=== PATIENT | female | born 1985 | race African-American/Black ===

== ENCOUNTER 2016-04-11 10:50 | Emergency (ER) | payer OTHER ==
--- NOTE | 2016-04-11 13:42 | EDDOCDS ---
Nurse's Notes [facility] Name: Marci Cain Age: 30 yrs Sex: Female : 1985 Arrival Date: 04/11/2016 Time: 10:50 Bed TR1 Private MD: Thi [facility] Diagnosis: Dental caries;Myalgia Presentation: 04/11 11:00 Presenting complaint: Patient states: Body aches and diarrhea flu like symptoms began mlb1 yesterday, reports on antibiotics for tooth abscess for the past six days. Adult Sepsis Screening: The patient does not have new or worsening altered mentation. Patient's respiratory rate is less than 22. Systolic blood pressure is greater than 100. Patient has a qSOFA score of 0- Negative Sepsis Screen. Suicide/Homicide risk assessment- the patient denies having any suicidal and/or homicidal ideations and does not present with any other emotional, behavioral or mental health complaints. Status: Status: The patient is a dependent. Transition of care: patient was received from. 11:00 Acuity: NICK Level 4 mlb1 11:00 Method Of Arrival: Walkin/Carried/Asstd mlb1 Triage Assessment: 11:03 General: Appears in no apparent distress, Behavior is appropriate for age, cooperative. mlb1 Pain: Location: "all over" Pain currently is 6 out of 10 on a pain scale. HIV screening NA for this visit Offered previously. GI: Reports diarrhea. 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 hydrochlorothiazide 25 mg Oral tab once daily 2. amoxicillin 500 mg Oral cap 1 cap every 12 hours 3. Tylenol 325 mg oral tab 975 mg three times a day - PMHx: back pain; Hypertension; - PSHx: gastric sleeve; (1999); - Social history: Smoking status: Patient uses tobacco products, light tobacco smoker. No barriers to communication noted, The patient speaks fluent Divehi, Speaks appropriately for age. - Family history: Not pertinent. - : The pt / caregiver states he / she is not on anticoagulants. Home medication list is obtained from the patient. - Exposure Risk Screening:: None identified. Screenin:40 Screening information is obtained from the patient. Fall risk: No risks identified. mlb1 Assistance ADL's: requires no assistance with activities of daily living. Abuse/DV Screen: The patient / caregiver reports he/she is: not in a situation that causes fear, pain or injury. Nutritional screening: No deficits noted. Advance Directives: Currently, there is no health care proxy. home support is adequate. Assessment: 13:40 General: Appears in no apparent distress, comfortable, Behavior is appropriate for age, mlb1 cooperative. Pain: Location: "all over" Pain currently is 6 out of 10 on a pain scale. Neurological: No deficits noted. GI: Reports diarrhea. Derm: No deficits noted. Vital Signs: 10:53 BP 183 / 84 RA Sitting (auto/lg); Pulse 84; Resp 18 A; Temp 98.6(T); Pulse Ox 99% on bnb R/A; Weight 70.31 kg (R); Height 5 ft. 1 in. (154.94 cm) (R); Pain 7/10; 13:28 BP 140 / 84; Pulse 71; Resp 16; Temp 97.5(O); Pulse Ox 100% ; Pain 7/10; cmb 13:41 BP 147 / 76; Pulse 76; Resp 16; Temp 96.6(O); Pulse Ox 100% on R/A; Pain 6/10; mlb1 10:53 Body Mass Index 29.29 (70.31 kg, 154.94 cm) [facility] Vitals: 10:53 Log In Time: April 11, 2016 at 10:38. [facility] ED Course: 10:52 Patient visited by Su Calderon PCA. bnb 10:52 Patient moved to Waiting bnb 10:53 LUIZA Ness is Private Physician. bnb 10:54 Patient visited by Su Calderon PCA. bnb 10:55 Patient moved to Pre RCE bnb 11:00 Patient visited by Mioz Villavicencio, QUITA. mlb1 11:02 Triage Initiated mlb1 11:04 Patient visited by Moiz Villavicencio, QUITA. mlb1 12:24 Patient moved to Triage 1 mcp 13:08 Paresh Pablo PA is PHCP. btw 13:08 Susan Scherer MD is Attending Physician. btw 13:08 Patient visited by Paresh Pablo PA. btw 13:26 ROSIBEL Ness is Referral Physician. btw 13:29 Patient visited by Mary Jane Griffiths. cmb 13:40 Patient moved to TR8 cmb 13:40 Patient moved to TR1 mlb1 13:40 No IV's were initiated during this patient's visit. No procedures done that require mlb1 assistance. 13:41 Patient visited by Moiz Villavicencio, RN. mlb1 13:41 The patient / caregiver is instructed regarding the plan of care and ED course. mlb1 Order Results: There are currently no results for this order. Outcome: 13:26 Discharge ordered by Provider. btw 13:41 Discharge Assessment: Patient awake, alert and oriented x 3. No cognitive and/or mlb1 functional deficits noted. Patient verbalized understanding of disposition instructions. patient administered narcotics - no. The following High Risk Discharge criteria are identified: None. Discharged to home ambulatory. Condition: good. Discharge instructions given to patient, Instructed on discharge instructions, follow up and referral plans. medication usage, no driving heavy equipment, Demonstrated understanding of instructions, medications, Pt was receptive of discharge instructions/ teaching. Prescriptions given X 2. No special radiology studies were completed. Property sent home with patient. 13:41 Patient left the ED. mlb1 Signatures: Vanessa Parks RN RN [facility] Moiz Villavicencio, RN RN mlb1 Paresh Pablo PA PA btw Mary Jane Griffiths cmb Su Calderon, CLINICAL IMMUNOLOGIST CLINICAL IMMUNOLOGIST bnb MTDD
--- NOTE | 2016-04-11 13:42 | EDDOCDS ---
Physician Documentation [facility] Name: Marci Cain Age: 30 yrs Sex: Female : 1985 Arrival Date: 04/11/2016 Time: 10:50 Bed TR1 Private MD: ROSIBEL Ness Disposition: 04/11/16 13:26 Discharged to Home/Self Care. Impression: Dental caries, Myalgia. - Condition is Stable. - Discharge Instructions: Dental Pain, Muscle Pain, Adult. - Prescriptions for Clindamycin HCl 300 mg Oral Capsule - take 1 capsule by ORAL route every 6 hours; 40 capsule. Ultram 50 mg Oral Tablet - take 1 tablet by ORAL route every 6 hours As needed MDD: 4 tabs; 20 tablet. - Medication Reconciliation, Local Pharmacy Hours form. - Follow up: ROSIBEL Ness; When: Call to arrange an appointment; Reason: Further diagnostic work-up, Recheck today's complaints, Continuance of care. - Problem is an ongoing problem. - Symptoms are unchanged. Historical: - Allergies: NSAIDSweight loss surgery; - Home Meds: 1. hydrochlorothiazide 25 mg Oral tab once daily 2. amoxicillin 500 mg Oral cap 1 cap every 12 hours 3. Tylenol 325 mg oral tab 975 mg three times a day - PMHx: back pain; Hypertension; - PSHx: gastric sleeve; (1999); - Social history: Smoking status: Patient uses tobacco products, light tobacco smoker. No barriers to communication noted, The patient speaks fluent Estonian, Speaks appropriately for age. - Family history: Not pertinent. - : The pt / caregiver states he / she is not on anticoagulants. Home medication list is obtained from the patient. - Exposure Risk Screening:: None identified. 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 1 in. (154.94 cm) (R); Pain 7/10; 13:28 BP 140 / 84; Pulse 71; Resp 16; Temp 97.5(O); Pulse Ox 100% ; Pain 7/10; cmb 13:41 BP 147 / 76; Pulse 76; Resp 16; Temp 96.6(O); Pulse Ox 100% on R/A; Pain 6/10; mlb1 10:53 Body Mass Index 29.29 (70.31 kg, 154.94 cm) bnb MDM: 13:30 Financial registration complete. lg Signatures: Marco Antonio Thompson, Kristian Reg lg Moiz Villavicencio RN RN mlb1 Paresh Pablo PA PA btw MTDD
--- NOTE | 2016-04-13 14:42 | EDDOCDS ---
Physician Documentation [facility] Name: Marci Cain Age: 30 yrs Sex: Female : 1985 Arrival Date: 04/11/2016 Time: 10:50 Bed TR1 Private MD: ROSIBEL Ness Disposition: 04/11/16 13:26 Discharged to Home/Self Care. Impression: Dental caries, Myalgia. - Condition is Stable. - Discharge Instructions: Dental Pain, Muscle Pain, Adult. - Prescriptions for Clindamycin HCl 300 mg Oral Capsule - take 1 capsule by ORAL route every 6 hours; 40 capsule. Ultram 50 mg Oral Tablet - take 1 tablet by ORAL route every 6 hours As needed MDD: 4 tabs; 20 tablet. - Medication Reconciliation, Local Pharmacy Hours form. - Follow up: ROSIBEL Ness; When: Call to arrange an appointment; Reason: Further diagnostic work-up, Recheck today's complaints, Continuance of care. - Problem is an ongoing problem. - Symptoms are unchanged. Historical: - Allergies: NSAIDSweight loss surgery; - Home Meds: 1. hydrochlorothiazide 25 mg Oral tab once daily 2. amoxicillin 500 mg Oral cap 1 cap every 12 hours 3. Tylenol 325 mg oral tab 975 mg three times a day - PMHx: back pain; Hypertension; - PSHx: gastric sleeve; (1999); - Social history: Smoking status: Patient uses tobacco products, light tobacco smoker. No barriers to communication noted, The patient speaks fluent Lao, Speaks appropriately for age. - Family history: Not pertinent. - : The pt / caregiver states he / she is not on anticoagulants. Home medication list is obtained from the patient. - Exposure Risk Screening:: None identified. 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 1 in. (154.94 cm) (R); Pain 7/10; 13:28 BP 140 / 84; Pulse 71; Resp 16; Temp 97.5(O); Pulse Ox 100% ; Pain 7/10; cmb 13:41 BP 147 / 76; Pulse 76; Resp 16; Temp 96.6(O); Pulse Ox 100% on R/A; Pain 6/10; mlb1 10:53 Body Mass Index 29.29 (70.31 kg, 154.94 cm) bnb MDM: 13:30 Financial registration complete. lg 14:00 [facility] [place] Agreement was scanned into [employer] and attached to record. lg 15:23 T-Sheet-- Draft Copy was scanned into [employer] and attached to record. gb Signatures: Mercedes Crabtree, Reg Reg gb Marco Antonio Thompson, Reg Reg lg Moiz Villavicencio RN RN mlb1 Paresh Pablo PA PA btw The chart was reviewed and I authenticate all verbal orders and agree with the evaluation and treatment provided.Attachments: 14:00 [facility] [place] Agreement lg 15:23 T-Sheet-- Draft Copy gb Chart Complete MTDD
--- NOTE | 2016-04-13 14:42 | EDDOCDS ---
Nurse's Notes [facility] Name: Marci Cain Age: 30 yrs Sex: Female : 1985 Arrival Date: 04/11/2016 Time: 10:50 Bed TR1 Private MD: Thi [facility] [place] Diagnosis: Dental caries;Myalgia Presentation: 04/11 11:00 Presenting complaint: Patient states: Body aches and diarrhea flu like symptoms began mlb1 yesterday, reports on antibiotics for tooth abscess for the past six days. Adult Sepsis Screening: The patient does not have new or worsening altered mentation. Patient's respiratory rate is less than 22. Systolic blood pressure is greater than 100. Patient has a qSOFA score of 0- Negative Sepsis Screen. Suicide/Homicide risk assessment- the patient denies having any suicidal and/or homicidal ideations and does not present with any other emotional, behavioral or mental health complaints. Status: Status: The patient is a dependent. Transition of care: patient was received from. 11:00 Acuity: NICK Level 4 mlb1 11:00 Method Of Arrival: Walkin/Carried/Asstd mlb1 Triage Assessment: 11:03 General: Appears in no apparent distress, Behavior is appropriate for age, cooperative. mlb1 Pain: Location: "all over" Pain currently is 6 out of 10 on a pain scale. HIV screening NA for this visit Offered previously. GI: Reports diarrhea. 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 hydrochlorothiazide 25 mg Oral tab once daily 2. amoxicillin 500 mg Oral cap 1 cap every 12 hours 3. Tylenol 325 mg oral tab 975 mg three times a day - PMHx: back pain; Hypertension; - PSHx: gastric sleeve; (1999); - Social history: Smoking status: Patient uses tobacco products, light tobacco smoker. No barriers to communication noted, The patient speaks fluent Armenian, Speaks appropriately for age. - Family history: Not pertinent. - : The pt / caregiver states he / she is not on anticoagulants. Home medication list is obtained from the patient. - Exposure Risk Screening:: None identified. Screenin:40 Screening information is obtained from the patient. Fall risk: No risks identified. mlb1 Assistance ADL's: requires no assistance with activities of daily living. Abuse/DV Screen: The patient / caregiver reports he/she is: not in a situation that causes fear, pain or injury. Nutritional screening: No deficits noted. Advance Directives: Currently, there is no health care proxy. home support is adequate. Assessment: 13:40 General: Appears in no apparent distress, comfortable, Behavior is appropriate for age, mlb1 cooperative. Pain: Location: "all over" Pain currently is 6 out of 10 on a pain scale. Neurological: No deficits noted. GI: Reports diarrhea. Derm: No deficits noted. Vital Signs: 10:53 BP 183 / 84 RA Sitting (auto/lg); Pulse 84; Resp 18 A; Temp 98.6(T); Pulse Ox 99% on bnb R/A; Weight 70.31 kg (R); Height 5 ft. 1 in. (154.94 cm) (R); Pain 7/10; 13:28 BP 140 / 84; Pulse 71; Resp 16; Temp 97.5(O); Pulse Ox 100% ; Pain 7/10; cmb 13:41 BP 147 / 76; Pulse 76; Resp 16; Temp 96.6(O); Pulse Ox 100% on R/A; Pain 6/10; mlb1 10:53 Body Mass Index 29.29 (70.31 kg, 154.94 cm) [facility] Vitals: 10:53 Log In Time: April 11, 2016 at 10:38. [facility] ED Course: 10:52 Patient visited by Su Calderon PCA. bnb 10:52 Patient moved to Waiting bnb 10:53 LUIZA Ness is Private Physician. bnb 10:54 Patient visited by Su Calderon PCA. bnb 10:55 Patient moved to Pre RCE bnb 11:00 Patient visited by Moiz Villavicencio, QUITA. mlb1 11:02 Triage Initiated mlb1 11:04 Patient visited by Moiz Villavicencio, QUITA. mlb1 12:24 Patient moved to Triage 1 mcp 13:08 Paresh Pablo PA is PHCP. btw 13:08 Susan Scherer MD is Attending Physician. btw 13:08 Patient visited by Paresh Pablo PA. btw 13:26 ROSIBEL Ness is Referral Physician. btw 13:29 Patient visited by Mary Jane Griffiths. cmb 13:40 Patient moved to TR8 cmb 13:40 Patient moved to TR1 mlb1 13:40 No IV's were initiated during this patient's visit. No procedures done that require mlb1 assistance. 13:41 Patient visited by Moiz Villavicencio, QUITA. mlb1 13:41 The patient / caregiver is instructed regarding the plan of care and ED course. mlb1 13:59 Patient name changed from Marci\\S\\Eyl\\S\\Ant\\S\\ to Marci\\S\\C\\S\\Ant. EDMS 14:00 [facility] [place] Agreement was scanned into [email or web address] and attached to record. lg 15:23 T-Sheet-- Draft Copy was scanned into [email or web address] and attached to record. gb Order Results: There are currently no results for this order. Outcome: 13:26 Discharge ordered by Provider. btw 13:41 Discharge Assessment: Patient awake, alert and oriented x 3. No cognitive and/or mlb1 functional deficits noted. Patient verbalized understanding of disposition instructions. patient administered narcotics - no. The following High Risk Discharge criteria are identified: None. Discharged to home ambulatory. Condition: good. Discharge instructions given to patient, Instructed on discharge instructions, follow up and referral plans. medication usage, no driving heavy equipment, Demonstrated understanding of instructions, medications, Pt was receptive of discharge instructions/ teaching. Prescriptions given X 2. No special radiology studies were completed. Property sent home with patient. 13:41 Patient left the ED. mlb1 Signatures: Dispatcher [facility] EDOR Vanessa Parks RN QUITA [facility] Mercedes Crabtree, Reg Reg gb Marco Antonio Thompson, Reg Reg Moiz Villavicencio RN RN Paresh Middleton, PA PA btw Mary Jane Griffiths cmb Su Calderon, LEAD PASTOR LEAD PASTOR bnb Chart Complete MTDD
--- NOTE | 2016-04-13 14:42 | EDDOCDS ---
Physician Documentation [facility] Name: Marci Cain Age: 30 yrs Sex: Female : 1985 Arrival Date: 04/11/2016 Time: 10:50 Bed TR1 Private MD: ROSIBEL Ness Disposition: 04/11/16 13:26 Discharged to Home/Self Care. Impression: Dental caries, Myalgia. - Condition is Stable. - Discharge Instructions: Dental Pain, Muscle Pain, Adult. - Prescriptions for Clindamycin HCl 300 mg Oral Capsule - take 1 capsule by ORAL route every 6 hours; 40 capsule. Ultram 50 mg Oral Tablet - take 1 tablet by ORAL route every 6 hours As needed MDD: 4 tabs; 20 tablet. - Medication Reconciliation, Local Pharmacy Hours form. - Follow up: ROSIBEL Ness; When: Call to arrange an appointment; Reason: Further diagnostic work-up, Recheck today's complaints, Continuance of care. - Problem is an ongoing problem. - Symptoms are unchanged. Historical: - Allergies: NSAIDSweight loss surgery; - Home Meds: 1. hydrochlorothiazide 25 mg Oral tab once daily 2. amoxicillin 500 mg Oral cap 1 cap every 12 hours 3. Tylenol 325 mg oral tab 975 mg three times a day - PMHx: back pain; Hypertension; - PSHx: gastric sleeve; (1999); - Social history: Smoking status: Patient uses tobacco products, light tobacco smoker. No barriers to communication noted, The patient speaks fluent Czech, Speaks appropriately for age. - Family history: Not pertinent. - : The pt / caregiver states he / she is not on anticoagulants. Home medication list is obtained from the patient. - Exposure Risk Screening:: None identified. 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 1 in. (154.94 cm) (R); Pain 7/10; 13:28 BP 140 / 84; Pulse 71; Resp 16; Temp 97.5(O); Pulse Ox 100% ; Pain 7/10; cmb 13:41 BP 147 / 76; Pulse 76; Resp 16; Temp 96.6(O); Pulse Ox 100% on R/A; Pain 6/10; mlb1 10:53 Body Mass Index 29.29 (70.31 kg, 154.94 cm) bnb MDM: 13:30 Financial registration complete. lg 14:00 [facility] [place] Payment Agreement was scanned into [employer] and attached to record. lg 15:23 T-Sheet-- Draft Copy was scanned into [employer] and attached to record. gb Signatures: Mercedes Crabtree, Reg Reg gb Marco Antonio Thompson, Reg Reg lg Moiz Villavicencio RN RN mlb1 Paresh Pablo PA PA btw The chart was reviewed and I authenticate all verbal orders and agree with the evaluation and treatment provided.Attachments: 14:00 [facility] [place] Payment Agreement lg 15:23 T-Sheet-- Draft Copy gb Chart Complete MTDD
== END 2016-04-11 13:41 | disposition home or self-care (01) ==
LOC: M ED 10:50
DX: K02.9 Dental caries, unspecified (principal); M79.1 Myalgia; I10 Essential (primary) hypertension; Z98.84 Bariatric surgery status; M54.9 Dorsalgia, unspecified; Z79.899 Other long term (current) drug therapy; Z88.6 Allergy status to analgesic agent; F17.210 Nicotine dependence, cigarettes, uncomplicated

== ENCOUNTER → 2016-06-14 | Emergency (ER) | payer OTHER ==
[~2016-06-14] VITALS: Ht 157.5 cm; Wt 70.3 kg
[~2016-06-14] MED LIST: AMOX500C PO; HYDR12.55 PO; MAGICMW MT; NORCOTAB PO
[2016-06-14 17:12] VITALS: BP 151/70
== END | disposition home or self-care (01) ==
LOC: M ED 19:23
DX: K04.7 Periapical abscess without sinus (principal)

== ENCOUNTER 2016-06-28 07:30 | Emergency (ER) | payer OTHER ==
[~2016-06-28] VITALS: Ht 157.5 cm; Wt 70.3 kg
[2016-06-28 07:33] VITALS: BP 142/67
[2016-06-28] MEDS ORDERED: NEXI10GR PO (07:36)
[2016-06-28] MEDS ORDERED: PERC5TAB6 PO (08:14)
[2016-06-28] MEDS: PERCOCET 5MG/325MG TAB PO ONE (08:17)
== END 2016-06-28 08:39 | disposition home or self-care (01) ==
LOC: M ED 08:09
DX: M67.432 Ganglion, left wrist (principal); M77.02 Medial epicondylitis, left elbow

== ENCOUNTER 2016-07-31 11:03 | Emergency (ER) | payer OTHER ==
[~2016-07-31] VITALS: Ht 157.5 cm; Wt 72.6 kg
[~2016-07-31 11:03] MED LIST changes: +NEXI10GR PO; +PERC5TAB6 PO
[2016-07-31 11:04] VITALS: BP 156/77
[2016-07-31] MEDS ORDERED: NORC1TAB4 PO (11:12)
[2016-07-31] MEDS ORDERED: AUGM875T27 PO (11:27)
[2016-07-31] MEDS ORDERED: ULTR50TA PO (11:27)
== END 2016-07-31 11:48 | disposition home or self-care (01) ==
LOC: M ED 11:24
DX: S02.5XXA Fracture of tooth (traumatic), initial encounter for closed fracture (principal); K02.9 Dental caries, unspecified; W01.190A Fall on same level from slipping, tripping and stumbling with subsequent striking against furniture, initial encounter; Y92.89 Other specified places as the place of occurrence of the external cause; Y93.89 Activity, other specified; Y99.9 Unspecified external cause status

== ENCOUNTER 2016-09-05 10:46 | Emergency (ER) | payer OTHER ==
[~2016-09-05] VITALS: Ht 157.5 cm; Wt 72.7 kg
[~2016-09-05 10:46] MED LIST changes: +AUGM875T27 PO; +NORC1TAB4 PO; +ULTR50TA PO
[2016-09-05 10:47] VITALS: BP 155/93
[2016-09-05] MEDS ORDERED: PROT20TA11 PO (11:02)
[2016-09-05] MEDS ORDERED: CLEO300C2 PO (12:12)
[2016-09-05] MEDS ORDERED: NORCOTAB PO (12:12)
== END 2016-09-05 12:27 | disposition home or self-care (01) ==
LOC: M ED 11:55
DX: K02.9 Dental caries, unspecified (principal); H92.01 Otalgia, right ear

== ENCOUNTER → 2016-10-01 | Outpatient (CLI) | payer OTHER ==
[~2016-10-01] MED LIST changes: -AUGM875T27 PO; +AUGM875T28 PO; +CLEO300C2 PO; +CLIN150C14 PO; +IBUP80TA PO; +NEXI20CA PO; +PERC5TAB12 PO; -PERC5TAB6 PO; +PROT20TA11 PO; +SUBO8MIS; -ULTR50TA PO; +ULTR50TA8 PO
--- NOTE | 2016-10-01 11:44 | REP ---
Chest two views HISTORY: None provided Comparison: None The lungs are clear. The heart is normal in size. The pulmonary vasculature is normal in appearance. The bony structure is intact. IMPRESSION: No acute disease. Signed by Chi Gill MD 10/01/2016 11:35 A
== END ==
LOC: M WUC 10:14
PROVIDERS: ATTEND Family Medicine Adult Medicine
DX: Z11.1 Encounter for screening for respiratory tuberculosis (principal)

== ENCOUNTER 2016-10-02 18:17 | Emergency (ER) | payer OTHER ==
[~2016-10-02] VITALS: Ht 157.5 cm; Wt 72.7 kg
[~2016-10-02 18:17] MED LIST changes: -CLIN150C14 PO; -IBUP80TA PO; -NEXI20CA PO; -SUBO8MIS
[2016-10-02] MEDS ORDERED: AUGMENTIN 875 MG TAB PO ONE (20:15)
[2016-10-02] MEDS ORDERED: NORCO, ANEXSIA 5/325MG TABLET (HYDROcodone/ACETAMINOPHEN) PO ONE (20:15)
[2016-10-02] MEDS ORDERED: NORCOTAB PO (20:19)
[2016-10-02] MEDS ORDERED: AUGM875T28 PO (20:19)
[2016-10-02 20:29] VITALS: BP 127/74
== END 2016-10-02 20:42 | disposition home or self-care (01) ==
LOC: M ED 18:17
DX: K02.9 Dental caries, unspecified (principal); F17.210 Nicotine dependence, cigarettes, uncomplicated

== ENCOUNTER 2016-12-23 15:41 | Emergency (ER) | payer OTHER ==
[~2016-12-23] VITALS: Ht 157.5 cm; Wt 73.6 kg
[2016-12-23 15:42] VITALS: BP 143/79
[2016-12-23] MEDS ORDERED: NEXI20CA PO (16:09)
[2016-12-23] MEDS ORDERED: IBUP80TA PO (16:09)
== END 2016-12-23 18:40 | disposition left against medical advice (07) ==
LOC: M ED 15:41
DX: R22.0 Localized swelling, mass and lump, head (principal); Z53.29 Procedure and treatment not carried out because of patient's decision for other reasons

== ENCOUNTER 2016-12-24 00:56 | Emergency (ER) | payer OTHER ==
[~2016-12-24] VITALS: Ht 157.5 cm; Wt 72.7 kg
[~2016-12-24 00:56] MED LIST changes: +IBUP80TA PO; +NEXI20CA PO
[2016-12-24 01:40] VITALS: BP 183/91
[2016-12-25] MEDS ORDERED: NORCOTAB PO (08:37)
[2016-12-25] MEDS ORDERED: CLIN150C14 PO (08:37)
[2016-12-25] MEDS ORDERED: SUBO8MIS (08:47)
== END 2016-12-24 04:02 | disposition left against medical advice (07) ==
LOC: M ED 00:56
DX: R22.0 Localized swelling, mass and lump, head (principal); Z53.29 Procedure and treatment not carried out because of patient's decision for other reasons

== ENCOUNTER 2016-12-25 07:51 | Emergency (ER) | payer OTHER ==
[~2016-12-25] VITALS: Ht 157.5 cm; Wt 72.7 kg
[2016-12-25 08:02] VITALS: BP 152/92
[2016-12-25] MEDS ORDERED: CLIN150C14 PO (08:37)
[2016-12-25] MEDS ORDERED: NORCOTAB PO (08:37)
[2016-12-25] MEDS ORDERED: CLINDAMYCIN 150 MG CAP PO ONE (08:45)
[2016-12-25] MEDS ORDERED: SUBO8MIS (08:47)
== END 2016-12-25 08:51 | disposition home or self-care (01) ==
LOC: M ED 07:51
DX: K04.7 Periapical abscess without sinus (principal); K02.9 Dental caries, unspecified; I10 Essential (primary) hypertension; Z79.899 Other long term (current) drug therapy; Z88.8 Allergy status to other drugs, medicaments and biological substances; F17.210 Nicotine dependence, cigarettes, uncomplicated

== ENCOUNTER → 2018-02-08 | Outpatient (REF) | payer OTHER ==
[2018-02-08 20:18] LABS: CHLAMYDIA DNA AMPLIFICATION POSITIVE (NEGATIVE); GC DNA AMPLIFICATION NEGATIVE (NEGATIVE)
== END ==
LOC: M LAB REF 13:17
DX: Z11.3 Encounter for screening for infections with a predominantly sexual mode of transmission (principal)